=== PATIENT | male | born 1975 | race Caucasian/White ===

== ENCOUNTER 2017-05-28 14:02 | Emergency (ER) | payer OTHER ==
[2017-05-28 14:14] VITALS: TEMP 98.4; BMI 28.1
[2017-05-28] MEDS ORDERED: SODIUM CHLORIDE 0.9% 1000 ML INFUS.BAG IV ONE (14:51)
[2017-05-28] MEDS ORDERED: METOCLOPRAMIDE HCL INJECTION 10 MG/2 ML VIAL IVPUSH ONE (14:52)
[2017-05-28] MEDS ORDERED: KETOROLAC TROMETHAMINE 30 MG/1 ML VIAL IVPUSH ONE (14:52)
--- NOTE | 2017-05-28 15:08 | PDOC ---
History of Present Illness - History of Present Illness Initial Comments: 05/28/17 15:14 The patient is a 42 year old male, with no significant past medical history, who presents to the emergency department with 2 weeks of constant frontal headache, lightheadedness, and new onset of nausea 3 days ago. He states he can not sleep at night secondary to the headache. He states the headache started as diffuse across his forehead, however, states he also feels a heaviness to the back that puts pressure on my spine. He reportedly took excedrin once with relief of the headache, however, states he did not have relief when he tried the excedrin a second and third time. He reports feeling light headed and almost faint. He also reports mild nausea over the past 72 hours, however, denies vomiting. He denies LOC or syncope. He denies head trauma. He reportedly had trauma to his head at 6 years old when a flag pole fell on him. He denies chest pain, shortness of breath, and dizziness. He denies fever, chills, vomit, diarrhea and constipation. He denies dysuria, frequency, urgency and hematuria. Allergies: NKDA <Yamilet Caceres - Last Filed: 05/28/17 17:06> - General History Source: Patient, Unavil. due to pt. cond. <Elsi Campbell - Last Filed: 05/28/17 17:12> - General Chief Complaint: Headache Stated Complaint: HEADACHE FOR 2 WEEKS Time Seen by Provider: 05/28/17 14:04 Past History <Yamilet Caceres - Last Filed: 05/28/17 17:06> - Past Medical History COPD: No Other medical history: DENIES - Suicide/Smoking/Psychosocial Hx Smoking History: Never smoked Have you smoked in the past 12 months: No Information on smoking cessation initiated: No Hx Alcohol Use: No Drug/Substance Use Hx: No Substance Use Type: None <Elsi Campbell - Last Filed: 05/28/17 17:12> - Past Medical History Allergies/Adverse Reactions: Allergies Allergy/AdvReac Type Severity Reaction Status Date / Time No Known Allergies Allergy Unverified 05/28/17 14:04 Home Medications: Ambulatory Orders Fluticasone Prop 0.05% Nasal [Flonase -] 1 spray NS DAILY #1 bot 05/28/17 Ibuprofen [Motrin -] 600 mg PO TID PRN #90 tablet 05/28/17 Pseudoephedrine HCl 30 mg PO QID PRN #15 tablet 05/28/17 Review of Systems - Review of Systems Able to Perform ROS?: Yes Comments:: 05/28/17 15:14 GENERAL/CONSTITUTIONAL: No fever or chills. No weakness. HEAD, EYES, EARS, NOSE AND THROAT: No change in vision. No ear pain or discharge. No sore throat. CARDIOVASCULAR: No chest pain or shortness of breath. RESPIRATORY: No cough, wheezing, or hemoptysis. GASTROINTESTINAL: (+) nausea, No vomiting, diarrhea or constipation. GENITOURINARY: No dysuria, frequency, or change in urination. MUSCULOSKELETAL: No joint or muscle swelling or pain. No neck or back pain. SKIN: No rash NEUROLOGIC: (+) headache and lightheadedness, vertigo, loss of consciousness, or change in strength/sensation. ENDOCRINE: No increased thirst. No abnormal weight change. HEMATOLOGIC/LYMPHATIC: No anemia, easy bleeding, or history of blood clots. ALLERGIC/IMMUNOLOGIC: No hives or skin allergy. <Yamilet Caceres - Last Filed: 05/28/17 17:06> *Physical Exam - Vital Signs Last Vital Signs Temp Pulse Resp BP Pulse Ox 98.4 F 86 16 141/100 97 05/28/17 14:07 05/28/17 14:07 05/28/17 14:07 05/28/17 14:07 05/28/17 14:07 - Physical Exam Comments: 05/28/17 15:15 GENERAL: Awake, alert, and fully oriented, in no acute distress HEAD: No signs of trauma EYES: PERRLA, EOMI, sclera anicteric, conjunctiva clear ENT: (+) left nare tuberant enlargement and sinus pressure to left maxilla. Auricles normal inspection, hearing grossly normal, oropharynx clear without exudates. Moist mucosa NECK: Normal ROM, supple, no lymphadenopathy, JVD, or masses LUNGS: Breath sounds equal, clear to auscultation bilaterally. No wheezes, and no crackles HEART: Regular rate and rhythm, normal S1 and S2, no murmurs, rubs or gallops ABDOMEN: Soft, nontender, normoactive bowel sounds. No guarding, no rebound. No masses EXTREMITIES: Normal range of motion, no edema. No clubbing or cyanosis. No cords, erythema, or tenderness NEUROLOGICAL: Cranial nerves II through XII grossly intact. 5/5 MS in all extremities. Normal speech, normal gait SKIN: Warm, Dry, normal turgor, no rashes or lesions noted. <Yamilet Caceres - Last Filed: 05/28/17 17:06> - Vital Signs Last Vital Signs Temp Pulse Resp BP Pulse Ox 98.4 F 86 16 141/100 97 05/28/17 14:07 05/28/17 14:07 05/28/17 14:07 05/28/17 14:07 05/28/17 14:07 <Elsi Campbell - Last Filed: 05/28/17 17:12> ED Treatment Course - LABORATORY CBC & Chemistry Diagram: 05/28/17 15:10 05/28/17 15:10 - RADIOLOGY Radiograph Interpretation: EXAM#: TYPE/EXAM: RESULT: [id number] CT/HEAD CT WITHOUT CONTRAST Exam: CT head without contrast. Indication: Headache. Technique: Axial noncontrast head CT. Comparison: None. Findings: There is no evidence of acute intracranial hemorrhage, extra-axial collection or compelling evidence of acute, territorial transcortical infarction. MRI is much more sensitive in detecting acute infarctions. A kelli cisterna magna is noted, an anatomic variation. There is no mass effect, midline shift or hydrocephalus. The calvarium is intact. There is a chronic fracture deformity of the left medial orbital wall with mild medial herniation of the extraconal retrobulbar fat into the ethmoids. There is minimal mucosal thickening along the sphenoid sinuses and left anterior ethmoids. Impression: No acute intracranial hemorrhage, mass effect, midline shift or hydrocephalus. Reported By: Khalida Belcher DO 05/28/17 1602 <Yamilet Caceres - Last Filed: 05/28/17 17:06> - LABORATORY CBC & Chemistry Diagram: 05/28/17 15:10 05/28/17 15:10 - RADIOLOGY Radiology Studies Ordered: Category Date Time Status HEAD CT WITHOUT CONTRAST [CT] Stat CT Scan 05/28/17 14:44 Ordered <Elsi Campbell - Last Filed: 05/28/17 17:12> Medical Decision Making - Medical Decision Making 05/28/17 15:05 42-year-old male no past medical history here today complaining of headache. Patient states he has had a slow progressive headache constant for 2 frontal and now wraps around bilateral sides does have nausea for the last 3 days no vomiting also complains of feeling lightheaded denies any fevers chills no head trauma CBC did have headaches many years ago and had a childhood head trauma with significant had the age of 6. Has not had any imaging. No moderating factors. Patient has not taken any medication because he felt healthy no moderating factors no particular times a day headache is worse feels it's constant all day everyday next Physical exam is unremarkable head is atraumatic his left turbinate enlargement and sinus tenderness in the maxillary region otherwise cranial nerves are intact lung exam is clear bilaterally no wheezing no crackles heart is regular without any murmurs rubs or" abdomen is soft and nontender neuro: 5 out of 5 all 4 extremitiesnormal gait is normal female nerves are intact Differential diagnosis includes anemia, electrolyte abnormality, sinusitis causing headaches, to. Pathology, dehydration,plan labs ivf meds. ct head, decongestant for presumed sinusitis. reassess. 05/28/17 17:10 Review patient's blood tests and CT scan with him. Explained about his elevated liver enzymes & follow-up given referral to our medicine clinic doctor-and a copy of all tests were performed here today in the ED. pt demonstrates understanding will call for follow-up <Elsi Campbell - Last Filed: 05/28/17 17:12> *DC/Admit/Observation/Transfer - Attestations Scribe Attestion: 05/28/17 15:16 Documentation prepared by Yamilet Caceres, acting as medical dosimetrist for Elsi Campbell MD, <Yamilet Caceres - Last Filed: 05/28/17 17:06> - Discharge Dispostion Admit: No <Elsi Campbell - Last Filed: 05/28/17 17:12> Diagnosis at time of Disposition: Headache, Sinusitis - Discharge Dispostion Disposition: HOME Condition at time of disposition: Improved - Prescriptions Prescriptions: Fluticasone Prop 0.05% Nasal [Flonase -] 1 spray NS DAILY #1 bot Ibuprofen [Motrin -] 600 mg PO TID PRN #90 tablet PRN Reason: Pain Pseudoephedrine HCl 30 mg PO QID PRN #15 tablet PRN Reason: Headache - Referrals Referrals: Shalom Roach MD [Staff Physician] - Walter Mackenzie MD [Staff Physician] - - Patient Instructions Printed Discharge Instructions: Tension Headache, Sinusitis Additional Instructions: You can take Motrin 600 mg every 8 hours as needed for pain. Take with food he can also take Tylenol 500 mg every 6 hours as needed for pain. He should use Flonase nasal spray one squirt each nostril daily to help with sinus pressure which may be contributing to her headaches. Follow-up with Dr. June Najera, the neurologist call to schedule see referral information for phone number. Return for any problems or concerns. Your CAT scan today was normal without any acute pathology please see copy of the reported test newspapers. your liver test were mildly elevated, these should be repeated in a few months to be sure they do not continue to rise. please take copy of test to your regular doctor for follow up with within a few weeks.
[2017-05-28] MEDS ORDERED: KETOROLAC TROMETHAMINE 30 MG/1 ML VIAL ONE (15:13)
[2017-05-28 15:16] LABS: BASOPHIL 0.9 % (0-2.0); EOSINOPHIL 0.3 % (0-4.5); MCH 30.1 pg (25.7-33.7); MCHC 34.4 g/dl (32.0-35.9); MEAN CELL VOLUME 87.5 fl (80-96); MEAN PLT VOLUME 8.3 fl (7.5-11.1); PLATELET COUNT 204 K/MM3 (134-434); WHITE BLOOD COUNT 4.5 K/mm3 (4.0-10.8)
[2017-05-28 15:33] LABS: ALBUMIN 4.2 g/dl (3.5-5.0); ALK PHOS 102 U/L (32-92); ANION GAP 8 (8-16); BILIRUBIN,TOTAL 1.6 mg/dl (0.2-1.0); CALCIUM 8.5 mg/dl (8.4-10.2); CO2 22 mmol/L (22-28); GLUCOSE,RANDOM 93 mg/dl (74-106); SGOT/AST 71 U/L (10-42); SGPT/ALT 44 U/L (10-40)
[2017-05-28 16:24] VITALS: BP 135/85; PULSE 725
== END 2017-05-28 17:21 | disposition home or self-care (01) ==
LOC: FER 14:02
PROC: 3E0337Z Introduction of Electrolytic and Water Balance Substance into Peripheral Vein, Percutaneous Approach (ICD-10-PCS; principal; 2017-05-28)
DX: J01.90 Acute sinusitis, unspecified (principal); R51 Headache
CPT/HCPCS: 36415; 70450-TC; 80053; 85025; 99282-25

== ENCOUNTER 2018-01-05 19:34 | Inpatient (IN) | payer OTHER ==
--- NOTE | 2018-01-05 19:38 | PDOC ---
History of Present Illness - General History Source: Patient Exam Limitations: No Limitations - History of Present Illness Initial Comments: 01/05/18 21:54 The patient is a 42 year old male with no past medical history who presents to the emergency department for evaluation of body aches and fever. The patient reports a 2 day history of moderate pain secondary to body aches. He states he feels like someone hit me with a bat when he wakes up in the morning. The patient reports associated symptoms of decreased appetite, headache, subjective fever, chills, diaphoresis, and nausea without vomiting. He reports waking up profusely diaphoretic at 3am twice over the last two days. The patient notes that he is also drenched in sweat when he drives during the day. Pt denies any change in daily routine. The patient reports using advil in the morning with no alleviation to symptoms. Of note, the patient was admitted in May for sinusitis The patient denies recent travel, sick contact, recent mosquito bites, and outside activity. Denies sore throat, rhinorrhea, weakness, cp, abdominal pain, sob, dizziness, and bowel/urinary symptoms. Allergies: NKDA. Family History: Htn and diabetes. 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 Pt lives with his mother. No reported alcohol, cigarette, or drug use. Surgical History: Pt denies. PCP: None. <Angel Luis Zarco - Last Filed: 01/05/18 21:53> <Macie Monroe - Last Filed: 01/07/18 06:26> - General Chief Complaint: Cold Symptoms Stated Complaint: VIRAL SYNDROME Past History <Angel Luis Zarco - Last Filed: 01/05/18 21:53> - Past Medical History COPD: No - Suicide/Smoking/Psychosocial Hx Smoking History: Never smoked Have you smoked in the past 12 months: No Hx Alcohol Use: No Drug/Substance Use Hx: No Substance Use Type: None <Macie Monroe - Last Filed: 01/07/18 06:26> - Past Medical History Allergies/Adverse Reactions: Allergies Allergy/AdvReac Type Severity Reaction Status Date / Time No Known Allergies Allergy Unverified 05/28/17 14:04 Home Medications: Ambulatory Orders NK [No Known Home Medication] 01/05/18 Review of Systems - Review of Systems Able to Perform ROS?: Yes Comments:: GENERAL/CONSTITUTIONAL: (+) fever. (+)chills. No weakness. HEAD, EYES, EARS, NOSE AND THROAT: No change in vision. No ear pain or discharge. No sore throat. CARDIOVASCULAR: No chest pain or shortness of breath. RESPIRATORY: No cough, wheezing, or hemoptysis. GASTROINTESTINAL: (+)Decreased appetite. (+)Nausea. No vomiting, diarrhea or constipation. GENITOURINARY: No dysuria, frequency, or change in urination. MUSCULOSKELETAL: (+)Body aches. No joint or muscle swelling. No neck or back pain. SKIN: No rash NEUROLOGIC: (+) headache. No vertigo, loss of consciousness, or change in strength/sensation. ENDOCRINE: No increased thirst. No abnormal weight change. HEMATOLOGIC/LYMPHATIC: No anemia, easy bleeding, or history of blood clots. ALLERGIC/IMMUNOLOGIC: No hives or skin allergy. <Angel Luis Zarco - Last Filed: 01/05/18 21:53> *Physical Exam - Vital Signs Last Vital Signs Temp Pulse Resp BP Pulse Ox 101.6 F H 97 H 16 120/85 99 01/05/18 19:35 01/05/18 19:35 01/05/18 19:35 01/05/18 19:35 01/05/18 19:35 - Physical Exam Comments: GENERAL: Awake, alert, and fully oriented, in no acute distress HEAD: No signs of trauma EYES: PERRLA, EOMI, sclera anicteric, conjunctiva clear ENT: Auricles normal inspection, hearing grossly normal, nares patent, oropharynx clear without exudates. Moist mucosa NECK: Normal ROM, supple, no lymphadenopathy, JVD, or masses LUNGS: Breath sounds equal, clear to auscultation bilaterally. No wheezes, and no crackles HEART: Regular rate and rhythm, normal S1 and S2, no murmurs, rubs or gallops ABDOMEN: Soft, nontender, normoactive bowel sounds. No guarding, no rebound. No masses EXTREMITIES: Normal range of motion, no edema. No clubbing or cyanosis. No cords, erythema, or tenderness NEUROLOGICAL: Cranial nerves II through XII grossly intact. Normal speech, normal gait SKIN: (+)Burning Up. Warm, Dry, normal turgor, no rashes or lesions noted. <Angel Luis Zarco - Last Filed: 01/05/18 21:53> ED Treatment Course - LABORATORY CBC & Chemistry Diagram: 01/05/18 21:30 01/05/18 21:30 - Medications Given in the ED: ED Medications Discontinued Medications Generic Name Dose Route Start Last Admin Trade Name Anais PRYoel Reason Stop Dose Admin Acetaminophen 1,000 mg 01/05/18 20:56 01/05/18 21:00 Tylenol - PO 01/05/18 20:57 1,000 mg ONCE ONE Administration Sodium Chloride 1,000 ml 01/05/18 21:10 01/05/18 21:31 Normal Saline - IV 01/05/18 21:11 1,000 ml ONCE ONE Administration <Angel Luis Zarco - Last Filed: 01/05/18 21:53> - LABORATORY CBC & Chemistry Diagram: 01/06/18 07:47 01/06/18 07:47 <Macie Monroe - Last Filed: 01/07/18 06:26> Medical Decision Making - Medical Decision Making 01/05/18 23:48 Pt has thrombocytopenia, leukopenia, abnormal liver enzymes and drenching sweats. This could be a tick borne illness. Perhaps babesiosis. I will send off a sed rate ad a blood smear. I will also recheck his chemistries, as he was hyponatremic and hypokalemic. I will admit to medicine so that he can have an ID consult. 01/05/18 23:57 Pt has no rash of lyme, or rash of rickettsisal illness. He has no travel out of the [place] and not liekly to be malaria. He has no abd pain significantof hepatitis, though he will require a hepatitis panel. Pt will also require further serologic testing and admission. He may require lumbar puncture. 01/06/18 00:02 Pt has a normal CXR; pt will need further HIV testing. EKG is NSR. Fever controlled with tylenol. Pt received 1L NSS, IV Mag and oral potassium 01/06/18 03:22 2ND CHEM PANEL IS IMPROVED; HEADACHE IS IMPROVED ALSO. <Macie Monroe - Last Filed: 01/07/18 06:26> *DC/Admit/Observation/Transfer - Attestations Scribe Attestion: Documentation prepared by Angel Luis Zarco, acting as medical records administrator for Macie Monroe MD. <Angel Luis Zarco - Last Filed: 01/05/18 21:53> - Discharge Dispostion Decision to Admit order: Yes <Macie Monroe - Last Filed: 01/07/18 06:26> Diagnosis at time of Disposition: Fever, Leukopenia, LFTs abnormal, Unexplained night sweats, Hypokalemia, Hyponatremia - Discharge Dispostion Condition at time of disposition: Guarded
[2018-01-05] MEDS ORDERED: ACETAMINOPHEN 500 MG TABLET (FP) PO ONE (20:56)
[2018-01-05] MEDS ORDERED: ACETAMINOPHEN 500 MG TABLET (FP) ONE (20:59)
[2018-01-05] MEDS ORDERED: SODIUM CHLORIDE 0.9% 500 ML INFUS.BAG IV ONE (21:10)
[2018-01-05 21:49] LABS: HEMATOCRIT 40.6 % (35.4-49); HEMOGLOBIN 14.2 GM/dl (11.7-16.9); MCH 30.6 pg (25.7-33.7); MCHC 35.1 g/dl (32.0-35.9); MEAN CELL VOLUME 87.3 fl (80-96); MEAN PLT VOLUME 8.1 fl (7.5-11.1); PLATELET COUNT 131 K/MM3 (134-434); RBC 4.65 M/mm3 (4.00-5.60); RDW 12.2 % (11.9-15.9); WHITE BLOOD COUNT 2.4 K/mm3 (4.0-10.8)
[2018-01-05 21:58] LABS: ALBUMIN 3.9 g/dl (3.5-5.0); ALK PHOS 105 U/L (32-92); ANION GAP 6 (8-16); BLOOD UREA NITROGEN 17 mg/dl (7-18); CALCIUM 7.8 mg/dl (8.4-10.2); CHLORIDE 97 mmol/L (98-107); CO2 26 mmol/L (22-28); CREATININE 1.1 mg/dl (0.6-1.3); GLUCOSE,RANDOM 102 mg/dl (74-106); SGOT/AST 75 U/L (10-42); SGPT/ALT 56 U/L (10-40); SODIUM 129 mmol/L (136-145); TOT PROT 6.7 g/dl (6.4-8.3)
[2018-01-05 22:19] LABS: PLATELET ESTIMATE ADEQUATE
[2018-01-05] MEDS ORDERED: POTASSIUM CHLORIDE TABS 20 MEQ TABLET.ER (FP) PO ONE ×2 (22:40→22:43)
[2018-01-05] MEDS ORDERED: MAGNESIUM SULF 50% (8.12 MEQ/2 ML-1 GM VIAL) IVPB ONE (22:40)
[2018-01-05] MEDS ORDERED: MAGNESIUM 1GM/D5W - 2 GM/200 ML IVPB IVPB ONE (22:43)
[2018-01-05 22:56] LABS: PH,URINE 5.5 (4.5-8); URINE APPEARANCE Clear; URINE BILIRUBIN Negative (NEGATIVE); URINE COLOR Yellow; URINE GLUCOSE (UA) Negative (NEGATIVE); URINE KETONE Trace (NEGATIVE); URINE LEUK ESTERASE Negative (NEGATIVE); URINE NITRITE Negative (NEGATIVE); URINE UROBILINOGEN 0.2 (0.2-1.0)
[2018-01-05 22:57] LABS: URINE PROTEIN 1+ (NEGATIVE)
[2018-01-05 23:09] LABS: URINE RBC 0-2 /hpf (0-3); URINE WBC 0-1 (0-2)
[2018-01-06] MEDS ORDERED: ATOVAQUONE 750 MG/5 ML (UNIT-DOSE PACKAGING) PO ONE (00:24)
[2018-01-06] MEDS ORDERED: AZITHROMYCIN 250 MG TABLET PO ONE (00:24)
[2018-01-06] MEDS ORDERED: AZITHROMYCIN 250 MG TABLET ONE (00:32)
[2018-01-06 01:36] LABS: ANION GAP 7 (8-16); BLOOD UREA NITROGEN 14 mg/dL (7-18); CALCIUM 7.3 mg/dL (8.5-10.1); CHLORIDE 107 mmol/L (98-107); CO2 26 mmol/L (21-32); CREATININE 0.9 mg/dL (0.7-1.3); GLUCOSE,RANDOM 109 mg/dL (74-106); POTASSIUM 3.4 mmol/L (3.5-5.1); SODIUM 140 mmol/L (136-145)
[2018-01-06 02:14] VITALS: BMI 27.0
[2018-01-06 08:33] LABS: ANION GAP 7 (8-16); BLOOD UREA NITROGEN 13 mg/dl (7-18); CALCIUM 7.7 mg/dl (8.4-10.2); CHLORIDE 104 mmol/L (98-107); CO2 24 mmol/L (22-28); CREATININE 0.8 mg/dl (0.6-1.3); GLUCOSE,RANDOM 94 mg/dl (74-106); LDH 282 U/L (91-180); MAGNESIUM 2.2 mg/dL (1.8-2.4); POTASSIUM 3.7 mmol/L (3.5-5.1); SODIUM 135 mmol/L (136-145)
[2018-01-06 08:56] LABS: HEMATOCRIT 37.3 % (35.4-49); MCH 30.4 pg (25.7-33.7); MCHC 34.8 g/dl (32.0-35.9); MEAN CELL VOLUME 87.4 fl (80-96); MEAN PLT VOLUME 8.6 fl (7.5-11.1); PLATELET COUNT 109 K/MM3 (134-434); RBC 4.27 M/mm3 (4.00-5.60); WHITE BLOOD COUNT 2.8 K/mm3 (4.0-10.8)
[2018-01-06 09:00] LABS: ADD RBC MORPHOLOGY YES
--- NOTE | 2018-01-06 09:18 | HP ---
CHIEF COMPLAINT:Body aches, fever and chills. PCP:None HISTORY OF PRESENT ILLNESS: The patient is a 42 year old male with no past medical history who presents to the emergency department for evaluation of body aches, fever and chills. The patient reports of having frontal HECTOR,eye pain,body aches especially to neck and lower back,joint pain with nausea,drenched in sweat when he drives during the day since Monday.The patient also reports associated symptoms of decreased appetite, subjective fever, chills, diaphoresis,and nausea without vomiting.Denies visual changes,double vision,sore throat,watery eyes,redness, rhinorrhea,rash, abdominal pain,diarrhea, cp, sob, palpitations,dizziness, weakness, urinary symptoms or weight loss. Denies any sick contact or recent travel history. 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 Pt reports of taking Advil for pain with no relief. 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 Smoking:No Alcohol:No Drugs: No *Family History: Mother: HTN, CHO, CVA Father - 10 yrs ado, unknown cause *Allergies No Known Allergies Allergy (Unverified 05/28/17 14:04) HOME MEDICATIONS: Home Medications Medication Instructions Recorded NK [No Known Home Medication] 01/05/18 REVIEW OF SYSTEMS CONSTITUTIONAL: Reports fever, chills, diaphoresis, generalized weakness, malaise, loss of appetite, No weight change HEENT: positive eye pain Absent: rhinorrhea, nasal congestion, throat pain, throat swelling, difficulty swallowing, mouth swelling, ear pain, visual changes CARDIOVASCULAR: Absent: chest pain, syncope, palpitations, irregular heart rate, lightheadedness , peripheral edema RESPIRATORY: Absent: cough, shortness of breath, dyspnea with exertion, orthopnea, wheezing, stridor, hemoptysis GASTROINTESTINAL: Absent: abdominal pain, abdominal distension, nausea, vomiting, diarrhea, constipation, melena, hematochezia GENITOURINARY: Absent: dysuria, frequency, urgency, hesitancy, hematuria, flank pain, genital pain MUSCULOSKELETAL: Absent: myalgia, arthralgia, joint swelling, back pain, neck pain,+ joint pain SKIN: Absent: rash, itching, pallor HEMATOLOGIC/IMMUNOLOGIC: Absent: easy bleeding, easy bruising, lymphadenopathy, frequent infections ENDOCRINE: Absent: unexplained weight gain, unexplained weight loss, heat intolerance, cold intolerance NEUROLOGIC: Absent: headache, focal weakness or paresthesias, dizziness, unsteady gait, seizure, mental status changes, bladder or bowel incontinence PSYCHIATRIC: Absent: anxiety, depression, suicidal or homicidal ideation, hallucinations. PHYSICAL EXAMINATION Vital Signs - 24 hr 01/05/18 01/05/18 01/06/18 19:35 22:50 00:21 Temperature 101.6 F H 98.7 F 98.9 F Pulse Rate 97 H Pulse Rate [ 80 Radial] Respiratory 16 18 Rate Blood Pressure 120/85 Blood Pressure 118/78 [Arm] O2 Sat by Pulse 99 100 Oximetry (%) 01/06/18 01/06/18 01/06/18 01:18 02:38 07:41 Temperature 98.9 F 98.8 F 99.2 F Pulse Rate 84 72 81 Pulse Rate [ Radial] Respiratory 18 20 18 Rate Blood Pressure 107/72 111/70 Blood Pressure [Arm] O2 Sat by Pulse 97 98 Oximetry (%) GENERAL: Awake, alert, and fully oriented, in no acute distress. HEAD: Normal with no signs of trauma. EYES: Pupils equal, round and reactive to light, extraocular movements intact, sclera anicteric, conjunctiva clear. No lid lag. EARS, NOSE, THROAT: Ears normal, nares patent, oropharynx clear without exudates. Moist mucous membranes. NECK: Normal range of motion, supple without lymphadenopathy, JVD, or masses. LUNGS: Breath sounds equal, clear to auscultation bilaterally. No wheezes, and no crackles. No accessory muscle use. HEART: Regular rate and rhythm, normal S1 and S2 without murmur, rub or gallop. ABDOMEN: Soft, nontender, not distended, normoactive bowel sounds, no guarding, no rebound, no masses. No hepatomegaly or splenomegaly. MUSCULOSKELETAL: Normal range of motion at all joints. No bony deformities or tenderness. No CVA tenderness. UPPER EXTREMITIES: 2+ pulses, warm, well-perfused. No cyanosis. No clubbing. No peripheral edema. LOWER EXTREMITIES: 2+ pulses, warm, well-perfused. No calf tenderness. No peripheral edema. NEUROLOGICAL: Cranial nerves II-XII intact. Normal speech. Normal gait. PSYCHIATRIC: Cooperative. Good eye contact. Appropriate mood and affect. SKIN: Warm, dry, normal turgor, no rashes or lesions noted, normal capillary refill. Laboratory Results - last 24 hr 01/05/18 01/05/18 01/05/18 21:30 21:30 21:30 WBC 2.4 L RBC 4.65 Hgb 14.2 Hct 40.6 MCV 87.3 MCH 30.6 MCHC 35.1 RDW 12.2 Plt Count 131 L D MPV 8.1 Absolute Neuts (auto) 1.5 Neutrophils % No Result Required. Neutrophils % (Manual) 57.0 Band Neutrophils % 4.0 Lymphocytes % No Result Required. Lymphocytes % (Manual) 25.0 Monocytes % (Manual) 7 Eosinophils % (Manual) 4.0 Platelet Estimate Adequate ESR Sodium 129 L Potassium 3.0 L D Chloride 97 L Carbon Dioxide 26 Anion Gap 6 L BUN 17 Creatinine 1.1 Creat Clearance w eGFR > 60 Random Glucose 102 Lactic Acid 0.7 Calcium 7.8 L Magnesium Total Bilirubin 1.0 AST 75 H ALT 56 H D Alkaline Phosphatase 105 H LD Total Total Protein 6.7 Albumin 3.9 Urine Color Urine Appearance Urine pH Ur Specific [place] Urine Protein Urine Glucose (UA) Urine Ketones Urine Blood Urine Nitrite Urine Bilirubin Urine Urobilinogen Ur Leukocyte Esterase Urine RBC Urine WBC Microbiology 01/05/18 21:20 Influenza Types A,B Antigen - Final Nasopharyngeal Swab - Final *Blood culture pending ASSESSMENT/PLAN: The patient is a 42 year old male with no past medical history who presents to the emergency department for evaluation of body aches, fever and chills. *Body aches, fever and chills -leukopenia- likely viral induced - max T 101.6, afebrile now, no leukocytosis - s/p Zithromax and Mepron in ER - serology studies pending - UA negative -BC done, report pending - ID Dr. Sahu consulted,rec to add Doxy - CxR- NAD - Influenza ruled out - pain control *Transaminitis-asymptomatic - hx of abnormal LFTs - will get liver US - will f/u on LFT's * Electrolyte imbalance - s/p replacement - will f/u on labs * F/E/N: Regular diet. * VTE: Will use SCDs in view of low PLT Visit type - Emergency Visit Emergency Visit: Yes ED Registration Date: 01/06/18 Care time: The patient presented to the Emergency Department on the above date and was hospitalized for further evaluation of their emergent condition. - New Patient This patient is new to me today: Yes Date on this admission: 01/13/18 - Critical Care Critical Care patient: No Hospitalist Screening - Colonoscopy Questionnaire Colonoscopy Questionnaire: Colonoscopy Questionnaire - Patient: 50 - 75 years old and never had a screening colonoscopy: No History of colon or rectal polyps, or CA: No History of IBD, Crohn's disease or UC: No History of abdominal radiation therapy as a child: No - Relative: 1 with colon or rectal CA, or polyps at age 60 or younger: Unknown Colon or rectal CA diagnosed at age 45 or younger: Unknown Multiple relatives with colon or rectal CA: Unknown - Outcome: Screening Result: Negative Screen
[2018-01-06 10:00] LABS: PLATELET ESTIMATE ADEQUATE
[2018-01-06] MEDS ORDERED: DOXYCYCLINE HYCLATE 100 MG CAPSULE PO SCH (10:00)
[2018-01-06] MEDS: CEFTRIAXONE 1 GM in DEXTROSE 5%-WATER - 50 ML IVPB SCH (10:24)
[2018-01-06] MEDS ORDERED: SODIUM CHLORIDE 1,000 ML IV SCH (14:00)
--- NOTE | 2018-01-06 16:28 | PN ---
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
[2018-01-06] MEDS: DOXYCYCLINE INJECTION 100 MG in DEXTROSE 5%-WATER - 100 ML IVPB SCH (21:33)
[2018-01-06] MEDS: IBUPROFEN 400 MG TABLET (FP) PO PRN (21:33)
[2018-01-07] MEDS: IBUPROFEN 400 MG TABLET (FP) PO PRN (04:42)
--- NOTE | 2018-01-07 08:15 | CONS ---
DATE OF CONSULTATION: 01/06/2018 This is an otherwise healthy 42-year-old man; he takes no medications, he has no allergies; who presents to the emergency room with complaints of sweats, chills, headache, neck pain, back pain, and a mild cough that all started on Monday. It has persisted since that time and he comes today with persistent fevers and chills. The chest x-ray done in the emergency room, though, is unremarkable. I am asked to see him for his fever. He is currently resting comfortably without any complaints. He has no known drug allergies. He takes no medications. 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 There is no history of any tick or insect bites. There is no history of any travel. He has no sick contacts. He is not sexually active. He denies any cigarette or substance use. SOCIAL HISTORY: He lives with his mother, who has dementia, and his daughter, who he is raising. 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 He lives in [place]. REVIEW OF SYSTEMS: He has no diarrhea or dysuria. He has no vomiting. He does note chills and sweats. He has not been to the dentist. He does not have any dental pain. He has overall body discomfort. He has pet parakeets at home, who he said that are well. PHYSICAL EXAMINATION: Vital Signs: His current temperature is 102.8 with a pulse of 92, blood pressure is 118/66, respiratory rate is 18. He is saturating 95% on room air. HEENT: He is normocephalic. His eyes are anicteric. He has no conjunctival hemorrhages. He has no thrush or pharyngitis. Neck: Supple. Lungs: Clear to auscultation. Heart: Regular rate and rhythm. He does not have a murmur. Abdomen: Soft, nontender. Extremities: Without edema. LABORATORIES: Notable for a white count of 2.8, hemoglobin is 13, platelets are 109. His sedimentation rate is 9. His BUN and creatinine are normal with BUN 0.8, creatinine and 0.6. LFTs on admission: AST of 75, ALT of 56, alkaline phosphatase of 105 with a normal bilirubin. Urinalysis is negative. He had a parasites mirror done that is negative and urine and blood cultures are pending. Influenza screen was done, which is negative. Chest x-ray was done, which is negative. SUMMARY: This is a 42-year-old man with leukopenia, thrombocytopenia, abnormal liver function tests. Although he denies any tick or mosquito bites, this is very consistent with a tick illness or a viral illness. Serologies have been sent for Babesia, Ehrlichia, Anaplasma, and Lyme as well as CMV and EBV. Would follow up serologies, treat him with Rocephin and doxycycline for now. No need for empiric treatment for Babesia, as there is no evidence of hemolysis and his mirror is negative. He has consented to HIV testing, which we will obtain as well. Further recommendations to follow based on his clinical course. Teresita [id number]
[2018-01-07] MEDS ORDERED: PT OWN MED DRAWER 7, Y5N ONE ×2 (09:09→21:11)
[2018-01-07 09:26] LABS: ALBUMIN 3.1 g/dl (3.5-5.0); ALK PHOS 151 U/L (32-92); ANION GAP 8 (8-16); BILIRUBIN,DIRECT 0.3 mg/dL (0.0-0.3); BLOOD UREA NITROGEN 10 mg/dl (7-18); CALCIUM 7.7 mg/dl (8.4-10.2); CHLORIDE 99 mmol/L (98-107); CO2 27 mmol/L (22-28); CREATININE 0.8 mg/dl (0.6-1.3); GLUCOSE,RANDOM 98 mg/dl (74-106); MAGNESIUM 1.9 mg/dL (1.8-2.4); PHOSPHOROUS 2.3 mg/dl (2.5-4.6); SGOT/AST 94 U/L (10-42); SGPT/ALT 103 U/L (10-40); SODIUM 134 mmol/L (136-145); TOT PROT 5.6 g/dl (6.4-8.3)
[2018-01-07 09:41] LABS: BASO % 0.1 % (0-2.0); EOS % 4.7 % (0-4.5); HEMATOCRIT 38.5 % (35.4-49); HEMOGLOBIN 13.3 GM/dl (11.7-16.9); LYMPH % 11.2 % (8-40); MCH 30.1 pg (25.7-33.7); MCHC 34.6 g/dl (32.0-35.9); MEAN PLT VOLUME 9.5 fl (7.5-11.1); MONO % 6.7 % (3.8-10.2); NEUT % 77.3 % (42.8-82.8); PLATELET COUNT 118 K/MM3 (134-434); RBC 4.43 M/mm3 (4.00-5.60); RDW 12.3 % (11.9-15.9); WHITE BLOOD COUNT 4.4 K/mm3 (4.0-10.8)
[2018-01-07] MEDS: DOXYCYCLINE INJECTION 100 MG in DEXTROSE 5%-WATER - 100 ML IVPB SCH ×2 (10:08→21:32)
[2018-01-07] MEDS: CEFTRIAXONE 1 GM in DEXTROSE 5%-WATER - 50 ML IVPB SCH (10:08)
--- NOTE | 2018-01-07 13:30 | PN ---
Physical Exam: SUBJECTIVE: Patient seen and examined. Headache, bodyaches, feverish. Rectal temp 102.3. OBJECTIVE: Vital Signs Period Temp Pulse Resp BP Sys/Vora Pulse Ox Last 24 Hr 98.9 F-102.8 F 72-92 18-19 103-118/59-66 95-100 GENERAL: The patient is awake, alert, and fully oriented, in no acute distress. LUNGS: Breath sounds equal, clear to auscultation bilaterally, no wheezes, no crackles, no accessory muscle use. HEART: Regular rate and rhythm, S1, S2 without murmur, rub or gallop. ABDOMEN: Soft, nontender, nondistended EXTREMITIES: 2+ pulses, warm, well-perfused, no edema. NEUROLOGICAL: Cranial nerves II through XII grossly intact. Normal speech SKIN: Very warm to touch, dry, no rashes noted Laboratory Results - last 24 hr 01/06/18 01/07/18 01/07/18 07:47 06:00 06:00 WBC 4.4 RBC 4.43 Hgb 13.3 Hct 38.5 MCV 87.0 MCH 30.1 MCHC 34.6 RDW 12.3 Plt Count 118 L MPV 9.5 D Absolute Neuts (auto) 3.4 Neutrophils % 77.3 Lymphocytes % 11.2 D Monocytes % 6.7 Eosinophils % 4.7 H D Basophils % 0.1 Sodium 134 L Potassium 4.0 Chloride 99 Carbon Dioxide 27 Anion Gap 8 BUN 10 Creatinine 0.8 Creat Clearance w eGFR > 60 Random Glucose 98 Calcium 7.7 L Phosphorus 2.3 L Magnesium 1.9 Total Bilirubin 1.0 Direct Bilirubin 0.3 AST 94 H D ALT 103 H D Alkaline Phosphatase 151 H D Total Protein 5.6 L Albumin 3.1 L Hep B Core IgM Ab Negative HIV 1&2 Antibody Screen HIV P24 Antigen 01/07/18 06:00 WBC RBC Hgb Hct MCV MCH MCHC RDW Plt Count MPV Absolute Neuts (auto) Neutrophils % Lymphocytes % Monocytes % Eosinophils % Basophils % Sodium Potassium Chloride Carbon Dioxide Anion Gap BUN Creatinine Creat Clearance w eGFR Random Glucose Calcium Phosphorus Magnesium Total Bilirubin Direct Bilirubin AST ALT Alkaline Phosphatase Total Protein Albumin Hep B Core IgM Ab HIV 1&2 Antibody Screen Negative HIV P24 Antigen Negative Active Medications Generic Name Dose Route Start Last Admin Trade Name Freq PRN Reason Stop Dose Admin Ceftriaxone Sodium 1 gm/ 50 mls @ 100 mls/hr 01/06/18 10:00 01/07/18 10:08 Dextrose IVPB 100 mls/hr DAILY OMKAR Administration Protocol Sodium Chloride 1,000 mls @ 75 mls/hr 01/06/18 14:00 01/06/18 14:00 Normal Saline - IV 75 mls/hr ASDIR OMKAR Administration Doxycycline Hyclate 100 mg/ 100 mls @ 50 mls/hr 01/06/18 22:00 01/07/18 10:08 Dextrose IVPB 50 mls/hr BID OMKAR Administration Ibuprofen 400 mg 01/06/18 13:56 01/07/18 04:42 Motrin - PO 400 mg Q6H PRN Administration FEVER ASSESSMENT/PLAN: 42 year-old male with no significant PMH, presents to the emergency department for evaluation of body aches, fever and chills. Body aches, fever and chills --spiking fevers >102 with leukopenia and thrombocytopenia; viral v. tickborne?? --fluid bolus 2L --continue ceftriaxone (day #2)and doxycycline (day #2) --Motrin for fever, avoid tylenol due to elevated LFTs --re-cultured today; tickborne illness panel pending; HIV negative Transaminitis --US done, pending dictation --serologies pending FEN Fluids: NS @ 75mL/hr Electrolytes: replete as indicated Nutrition: regular diet DVT prophylaxis: SCDs, oob, ambulation Dispo: continues to require inpatient care. Full Code. Visit type - Emergency Visit Emergency Visit: Yes ED Registration Date: 01/06/18 Care time: The patient presented to the Emergency Department on the above date and was hospitalized for further evaluation of their emergent condition. - New Patient This patient is new to me today: Yes Date on this admission: 01/07/18 - Critical Care Critical Care patient: No
[2018-01-07] MEDS ORDERED: SODIUM CHLORIDE 1,000 ML IV STA ×2 (13:42→13:44)
[2018-01-07] MEDS ORDERED: SODIUM CHLORIDE 1,000 ML IV SCH ×2 (13:43→13:45)
[2018-01-07] MEDS ORDERED: IBUPROFEN 800 MG/8 ML IJ IVPB ONE (14:15)
--- NOTE | 2018-01-07 15:39 | PN ---
Progress Note (short form) - Note Progress Note: day #1 doxycycline/rocephin still with intermittent fever and chills currently feeling well no appetite alert conversant Vital Signs Period Temp Pulse Resp BP Sys/Vora Pulse Ox Last 24 Hr 98.9 F-101.8 F 72-87 18-19 103-118/59-66 95-100 cor-rrr lungs clear abd soft,nt ext no edema no rash CBC, BMP 01/07/18 06:00 01/07/18 06:00 Laboratory Tests 01/06/18 00:14 ESR 9 Microbiology 01/05/18 22:51 Urine - Urine Clean Catch Urine Culture - Final NO GROWTH OBTAINED 01/05/18 21:30 Blood - Peripheral Venous Blood Culture - Preliminary NO GROWTH OBTAINED AFTER 24 HOURS, INCUBATION TO CONTINUE FOR 4 DAYS. 01/05/18 21:30 Blood - Peripheral Venous Blood Culture - Preliminary NO GROWTH OBTAINED AFTER 24 HOURS, INCUBATION TO CONTINUE FOR 4 DAYS. 01/06/18 00:14 Blood - Peripheral Venous Blood Parasites Smear - Final No growth. 01/05/18 21:20 Nasopharyngeal Swab Influenza Types A,B Antigen - Final 01/05/18 21:20 Nasopharyngeal Swab - Final hiv negative a/p fevers-persistent no tick/mosquito bites no dental visits no rash ?tick illness ?viral illness serologies sent rocephin/doxy day #1 f/u cultures f/u liver sonogram results will d/w DENTAL ASSISTANT check hepatitis serology wbc/platelets starting to improve Problem List - Problems (1) FUO (fever of unknown origin) Code(s): R50.9 - FEVER, UNSPECIFIED
[2018-01-07] MEDS ORDERED: REFRIGERATED ANITBIOTICS ONE (21:12)
[2018-01-08] MEDS: IBUPROFEN 400 MG TABLET (FP) PO PRN ×3 (06:21→20:59)
--- NOTE | 2018-01-08 08:06 | PN ---
Physical Exam: SUBJECTIVE: Patient seen and examined, patient reports feeling tired with tactile fever OBJECTIVE: patient is a 42 year-old male with no significant PMH, patient was admitted from the emergency department for fever of unknown origin and transaminitis. Vital Signs Period Temp Pulse Resp BP Sys/Vora Pulse Ox Last 24 Hr 98.4 F-102.3 F 80-88 18-20 105-133/61-68 95 GENERAL: The patient is awake, alert, and fully oriented, in no acute distress. HEAD: Normal with no signs of trauma. EYES: PERRL, extraocular movements intact, sclera anicteric, conjunctiva clear. No ptosis. ENT: Ears normal, nares patent, oropharynx clear without exudates, moist mucous membranes. NECK: Trachea midline, full range of motion, supple. LUNGS: Breath sounds equal, clear to auscultation bilaterally, no wheezes, no crackles, no accessory muscle use. HEART: Regular rate and rhythm, S1, S2 without murmur, rub or gallop. ABDOMEN: Soft, nontender, nondistended, normoactive bowel sounds, no guarding, no rebound, no hepatosplenomegaly, no masses. EXTREMITIES: 2+ pulses, warm, well-perfused, no edema. NEUROLOGICAL: Cranial nerves II through XII grossly intact. Normal speech, gait not observed. PSYCH: Normal mood, normal affect. SKIN: Warm, dry, normal turgor, no rashes or lesions noted Laboratory Results - last 24 hr CBC WBC 5.3 K/mm3 (4.0-10.8) 01/08/18 07:10 RBC 3.94 M/mm3 (4.00-5.60) L 01/08/18 07:10 Hgb 11.5 GM/dl (11.7-16.9) L 01/08/18 07:10 Hct 34.0 % (35.4-49) L 01/08/18 07:10 MCV 86.5 fl (80-96) 01/08/18 07:10 MCH 29.3 pg (25.7-33.7) 01/08/18 07:10 MCHC 33.9 g/dl (32.0-35.9) 01/08/18 07:10 RDW 12.2 % (11.9-15.9) 01/08/18 07:10 Plt Count 137 K/MM3 (134-434) 01/08/18 07:10 MPV 9.1 fl (7.5-11.1) 01/08/18 07:10 Absolute Neuts (auto) 4.3 # 01/08/18 07:10 Neutrophils % 81.9 % (42.8-82.8) 01/08/18 07:10 Neutrophils % (Manual) 72.0 % (42.8-82.8) 01/06/18 07:47 Band Neutrophils % 4.0 % (0-10) 01/05/18 21:30 Lymphocytes % 9.3 % (8-40) 01/08/18 07:10 Lymphocytes % (Manual) 14.0 % (8-40) D 01/06/18 07:47 Monocytes % 5.4 % (3.8-10.2) 01/08/18 07:10 Monocytes % (Manual) 12 % (3.8-10.2) H 01/06/18 07:47 Eosinophils % 3.4 % (0-4.5) 01/08/18 07:10 Eosinophils % (Manual) 2.0 % (0-4.5) 01/06/18 07:47 Basophils % 0.0 % (0-2.0) 01/08/18 07:10 Platelet Estimate Adequate 01/06/18 07:47 ESR 9 mm/hr (0-10) 01/06/18 00:14 CMP Sodium 131 mmol/L (136-145) L 01/08/18 07:10 Potassium 3.3 mmol/L (3.5-5.1) L 01/08/18 07:10 Chloride 104 mmol/L (98-107) 01/08/18 07:10 Carbon Dioxide 23 mmol/L (22-28) 01/08/18 07:10 Anion Gap 4 (8-16) L 01/08/18 07:10 BUN 8 mg/dl (7-18) 01/08/18 07:10 Creatinine 0.8 mg/dl (0.6-1.3) 01/08/18 07:10 Creat Clearance w eGFR > 60 (>60) 01/08/18 07:10 Random Glucose 101 mg/dl (74-106) 01/08/18 07:10 Lactic Acid 0.7 mmol/L (0.0-2.0) 01/05/18 21:30 Calcium 7.3 mg/dl (8.4-10.2) L 01/08/18 07:10 Phosphorus 2.3 mg/dl (2.5-4.6) L 01/07/18 06:00 Magnesium 1.6 mg/dL (1.8-2.4) L 01/08/18 07:10 Total Bilirubin 0.9 mg/dl (0.2-1.0) 01/08/18 07:10 Direct Bilirubin 0.3 mg/dL (0.0-0.3) 01/08/18 07:10 AST 80 U/L (10-42) H 01/08/18 07:10 ALT 130 U/L (10-40) H D 01/08/18 07:10 Alkaline Phosphatase 210 U/L (32-92) H D 01/08/18 07:10 LD Total 282 U/L (91-180) H 01/06/18 07:47 Total Protein 4.9 g/dl (6.4-8.3) L 01/08/18 07:10 Albumin 2.7 g/dl (3.5-5.0) L 01/08/18 07:10 Laboratory Tests 01/07/18 06:00 HIV 1&2 Antibody Screen Negative HIV P24 Antigen Negative Active Medications Generic Name Dose Route Start Last Admin Trade Name Anais PRN Reason Stop Dose Admin Ceftriaxone Sodium 1 gm/ 50 mls @ 100 mls/hr 01/06/18 10:00 01/07/18 10:08 Dextrose IVPB 100 mls/hr DAILY OMKAR Administration Protocol Doxycycline Hyclate 100 mg/ 100 mls @ 50 mls/hr 01/06/18 22:00 01/07/18 21:32 Dextrose IVPB 50 mls/hr BID OMKAR Administration Sodium Chloride 1,000 mls @ 100 mls/hr 01/07/18 13:45 01/07/18 15:00 Normal Saline - IV 100 mls/hr ASDIR OMKAR Administration Ibuprofen 400 mg 01/06/18 13:56 01/08/18 06:21 Motrin - PO 400 mg Q6H PRN Administration FEVER Microbiology 01/06/18 00:14 Blood - Peripheral Venous Blood Parasites Smear - Final, negative 01/05/18 21:30 Blood - Peripheral Venous Blood Culture - Preliminary NO GROWTH OBTAINED AFTER 48 HOURS, INCUBATION TO CONTINUE FOR 3 DAYS. 01/05/18 21:30 Blood - Peripheral Venous Blood Culture - Preliminary NO GROWTH OBTAINED AFTER 48 HOURS, INCUBATION TO CONTINUE FOR 3 DAYS. 01/05/18 22:51 Urine - Urine Clean Catch Urine Culture - Final NO GROWTH OBTAINED 01/05/18 21:20 Nasopharyngeal Swab Influenza Types A,B Antigen - Final, negative 01/05/18 21:20 Nasopharyngeal Swab - Final, negative imaging liver ultrasound: Diffuse hepatic steatosis, no hepatic abscess, chronic cholecytitis chest xray: no infilitrate no effusion noted ASSESSMENT/PLAN: 1) heme/onc fever of unknown origin-->tick vs viral - tmax 101.5, no leukocytosis noted, blood cultures negative to date - blood smear negative for parasites - pending lymes and cmv - continue ceftriaxone (day #3)and doxycycline (day #3) - ID physician, Dr Haddad consulted and following 2) GI Transaminitis - Ultrasound report reviewed,hepatitis B- awaiting complete hepatic serologies benign abdominal exam FEN regular diet Electrolytes: replete as indicated Nutrition: regular diet DVT prophylaxis: SCDs, oob, ambulation Dispo: continues to require inpatient care. Full Code. Visit type - Emergency Visit Emergency Visit: Yes ED Registration Date: 01/06/18 Care time: The patient presented to the Emergency Department on the above date and was hospitalized for further evaluation of their emergent condition. - New Patient This patient is new to me today: Yes Date on this admission: 01/08/18 - Critical Care Critical Care patient: No - Discharge Referral Referred to [facility] Med P.C.: No
[2018-01-08 08:09] LABS: EOS % 3.4 % (0-4.5); HEMOGLOBIN 11.5 GM/dl (11.7-16.9); LYMPH % 9.3 % (8-40); MCH 29.3 pg (25.7-33.7); MCHC 33.9 g/dl (32.0-35.9); MEAN CELL VOLUME 86.5 fl (80-96); MEAN PLT VOLUME 9.1 fl (7.5-11.1); MONO % 5.4 % (3.8-10.2); NEUT % 81.9 % (42.8-82.8); PLATELET COUNT 137 K/MM3 (134-434); RBC 3.94 M/mm3 (4.00-5.60); RDW 12.2 % (11.9-15.9); WHITE BLOOD COUNT 5.3 K/mm3 (4.0-10.8)
[2018-01-08 08:38] LABS: ALBUMIN 2.7 g/dl (3.5-5.0); ALK PHOS 210 U/L (32-92); ANION GAP 4 (8-16); BILIRUBIN,DIRECT 0.3 mg/dL (0.0-0.3); BILIRUBIN,TOTAL 0.9 mg/dl (0.2-1.0); BLOOD UREA NITROGEN 8 mg/dl (7-18); CALCIUM 7.3 mg/dl (8.4-10.2); CHLORIDE 104 mmol/L (98-107); CO2 23 mmol/L (22-28); CREATININE 0.8 mg/dl (0.6-1.3); GLUCOSE,RANDOM 101 mg/dl (74-106); MAGNESIUM 1.6 mg/dL (1.8-2.4); POTASSIUM 3.3 mmol/L (3.5-5.1); SGOT/AST 80 U/L (10-42); SGPT/ALT 130 U/L (10-40); SODIUM 131 mmol/L (136-145); TOT PROT 4.9 g/dl (6.4-8.3)
[2018-01-08] MEDS ORDERED: MAGNESIUM SULFATE IN WATER 2 GM/50 ML IVPB IVPB ONE (09:30)
[2018-01-08 09:35] LABS: ALBUMIN 3.4 g/dl (3.5-5.0); ALK PHOS 103 U/L (32-92); BILIRUBIN,DIRECT 0.2 mg/dL (0.0-0.3); BILIRUBIN,TOTAL 0.9 mg/dl (0.2-1.0); SGOT/AST 74 U/L (10-42); SGPT/ALT 57 U/L (10-40); TOT PROT 5.7 g/dl (6.4-8.3)
[2018-01-08] MEDS: DOXYCYCLINE INJECTION 100 MG in DEXTROSE 5%-WATER - 100 ML IVPB SCH ×2 (09:44→21:34)
[2018-01-08] MEDS: CEFTRIAXONE 1 GM in DEXTROSE 5%-WATER - 50 ML IVPB SCH (09:45)
--- NOTE | 2018-01-08 09:59 | PN ---
Progress Note, Physician History of Present Illness: Remains febrile 101.2 this am C/O mild frontal headache WBC improved Tick serology pending LFTs remain elevated HIV test negative - Current Medication List Current Medications: Active Medications Ceftriaxone Sodium 1 gm/ (Dextrose) 50 mls @ 100 mls/hr IVPB DAILY OMKAR; Protocol Last Admin: 01/08/18 09:45 Dose: 100 mls/hr Doxycycline Hyclate 100 mg/ (Dextrose) 100 mls @ 50 mls/hr IVPB BID OMKAR Last Admin: 01/08/18 09:44 Dose: 50 mls/hr Magnesium Sulfate (Magnesium Sulf 2 G/50 Ml Bag) 2 gm in 50 mls @ 50 mls/hr IVPB ONCE ONE Stop: 01/08/18 10:29 Last Admin: 01/08/18 09:44 Dose: 50 mls/hr Ibuprofen (Motrin -) 400 mg PO Q6H PRN PRN Reason: FEVER Last Admin: 01/08/18 09:45 Dose: 400 mg - Objective Vital Signs: Vital Signs Temperature 101.2 F H 01/08/18 06:00 Pulse Rate 80 01/08/18 06:00 Respiratory Rate 18 01/08/18 06:00 Blood Pressure 133/68 01/08/18 06:00 O2 Sat by Pulse Oximetry (%) 95 01/07/18 19:40 Constitutional: Yes: No Distress Eyes: Yes: Conjunctiva Clear Cardiovascular: Yes: Regular Rate and Rhythm, S1, S2 Respiratory: No: CTA Bilaterally Gastrointestinal: Yes: Normal Bowel Sounds, Soft. No: Tenderness Edema: No Labs: CBC, BMP 01/08/18 07:10 01/08/18 07:10 Assessment/Plan Fever,headache, leukopenia/ thrombocytopenia, elevated LFTs Tick-related vs. viral illness Await serologies Continue empiric ceftriaxone/ doxycycline
--- NOTE | 2018-01-08 10:50 | EKG ---
Test Reason : Blood Pressure : / mmHG Vent. Rate : 078 BPM Atrial Rate : 078 BPM P-R Int : 172 ms QRS Dur : 086 ms QT Int : 376 ms P-R-T Axes : 061 074 028 degrees QTc Int : 428 ms NORMAL SINUS RHYTHM NORMAL ECG WHEN COMPARED WITH ECG OF 08-APR-2002 23:30, NO SIGNIFICANT CHANGE WAS FOUND Confirmed by CLEMENCIA JARRELL MD ([id number]) on 01/08/2018 10:50:41 AM Referred By: MD PARIS Confirmed By:CLEMENCIA JARRELL MD
[2018-01-08] MEDS ORDERED: PT OWN MED DRAWER 7, Y5N ONE (21:14)
[2018-01-09 00:11] LABS: CMV IgM < 30.0 AU/mL (0.0-29.9)
[2018-01-09] MEDS: IBUPROFEN 400 MG TABLET (FP) PO PRN ×2 (06:46→14:02)
[2018-01-09 08:28] LABS: BASO % 0.1 % (0-2.0); EOS % 6.7 % (0-4.5); HEMATOCRIT 36.5 % (35.4-49); HEMOGLOBIN 12.3 GM/dl (11.7-16.9); MCH 29.2 pg (25.7-33.7); MCHC 33.7 g/dl (32.0-35.9); MEAN CELL VOLUME 86.7 fl (80-96); MEAN PLT VOLUME 7.9 fl (7.5-11.1); MONO % 4.8 % (3.8-10.2); NEUT % 75.4 % (42.8-82.8); PLATELET COUNT 214 K/MM3 (134-434); RBC 4.21 M/mm3 (4.00-5.60); RDW 12.3 % (11.9-15.9); WHITE BLOOD COUNT 6.7 K/mm3 (4.0-10.8)
--- NOTE | 2018-01-09 08:42 | PN ---
Physical Exam: SUBJECTIVE: Patient seen and examined, reports headache and dry cough denies any chest pain or shortness of breath ambulatory at bedside, steady gait noted OBJECTIVE:patient is a 42 year-old male with no significant PMH, patient was admitted from the emergency department for fever of unknown origin and transaminitis. Vital Signs Period Temp Pulse Resp BP Sys/Vora Pulse Ox Last 24 Hr 98.5 F-99.0 F 74-83 18-18 102-114/57-69 97-99 GENERAL: The patient is awake, alert, and fully oriented, in no acute distress. HEAD: Normal with no signs of trauma. EYES: PERRL, extraocular movements intact, sclera anicteric, conjunctiva clear. No ptosis. ENT: Ears normal, nares patent, oropharynx clear without exudates, moist mucous membranes. NECK: Trachea midline, full range of motion, supple. LUNGS: Breath sounds equal, clear to auscultation bilaterally, no wheezes, no crackles, no accessory muscle use. HEART: Regular rate and rhythm, S1, S2 without murmur, rub or gallop. ABDOMEN: Soft, nontender, nondistended, normoactive bowel sounds, no guarding, no rebound, no hepatosplenomegaly, no masses. EXTREMITIES: 2+ pulses, warm, well-perfused, no edema. NEUROLOGICAL: Cranial nerves II through XII grossly intact. Normal speech, gait not observed. PSYCH: Normal mood, normal affect. SKIN: Warm, dry, normal turgor, no rashes or lesions noted Laboratory Results - last 24 hr 01/06/18 01/06/18 01/06/18 07:47 07:47 07:47 WBC RBC Hgb Hct MCV MCH MCHC RDW Plt Count MPV Absolute Neuts (auto) Neutrophils % Lymphocytes % Monocytes % Eosinophils % Basophils % Haptoglobin Sodium Potassium Chloride Carbon Dioxide Anion Gap BUN Creatinine Creat Clearance w eGFR Random Glucose Calcium Phosphorus Magnesium Total Bilirubin 0.9 Direct Bilirubin 0.2 AST 74 H ALT 57 H Alkaline Phosphatase 103 H Total Protein 5.7 L Albumin 3.4 L Lyme Screen IgG & IgM <0.91 Lyme IgM Quantitation <0.80 CMV IgG Ab 1.80 H CMV IgM Ab < 30.0 01/07/18 01/07/18 01/09/18 06:00 06:00 08:15 WBC 6.7 RBC 4.21 Hgb 12.3 Hct 36.5 MCV 86.7 MCH 29.2 MCHC 33.7 RDW 12.3 Plt Count 214 D MPV 7.9 D Absolute Neuts (auto) 5.1 Neutrophils % 75.4 Lymphocytes % 13.0 D Monocytes % 4.8 Eosinophils % 6.7 H D Basophils % 0.1 D Haptoglobin 142 Sodium 134 L Potassium 4.0 Chloride 99 Carbon Dioxide 27 Anion Gap 8 BUN 10 Creatinine 0.8 Creat Clearance w eGFR > 60 Random Glucose 98 Calcium 7.7 L Phosphorus 2.3 L Magnesium 1.9 Total Bilirubin 1.0 Direct Bilirubin 0.3 D AST 94 H D ALT 103 H D Alkaline Phosphatase 151 H D Total Protein 5.6 L Albumin 3.1 L Lyme Screen IgG & IgM Lyme IgM Quantitation CMV IgG Ab CMV IgM Ab Active Medications Generic Name Dose Route Start Last Admin Trade Name Freq PRN Reason Stop Dose Admin Ceftriaxone Sodium 1 gm/ 50 mls @ 100 mls/hr 01/06/18 10:00 01/08/18 09:45 Dextrose IVPB 100 mls/hr DAILY OMKAR Administration Protocol Doxycycline Hyclate 100 mg/ 100 mls @ 50 mls/hr 01/06/18 22:00 01/08/18 21:34 Dextrose IVPB 50 mls/hr BID OMKAR Administration Ibuprofen 400 mg 01/06/18 13:56 01/09/18 06:46 Motrin - PO 400 mg Q6H PRN Administration FEVER Microbiology 01/05/18 21:30 Blood - Peripheral Venous Blood Culture - Preliminary NO GROWTH OBTAINED AFTER 72 HOURS, INCUBATION TO CONTINUE FOR 2 DAYS. 01/05/18 21:30 Blood - Peripheral Venous Blood Culture - Preliminary NO GROWTH OBTAINED AFTER 72 HOURS, INCUBATION TO CONTINUE FOR 2 DAYS. 01/07/18 14:00 Blood - Peripheral Venous Blood Culture - Preliminary NO GROWTH OBTAINED AFTER 24 HOURS, INCUBATION TO CONTINUE FOR 4 DAYS. 01/07/18 14:30 Blood - Peripheral Venous Blood Culture - Preliminary NO GROWTH OBTAINED AFTER 24 HOURS, INCUBATION TO CONTINUE FOR 4 DAYS. 01/06/18 00:14 Blood - Peripheral Venous Blood Parasites Smear - Final, 01/05/18 22:51 Urine - Urine Clean Catch Urine Culture - Final NO GROWTH OBTAINED 01/05/18 21:20 Nasopharyngeal Swab Influenza Types A,B Antigen - Final, neg 01/05/18 21:20 Nasopharyngeal Swab - Final imaging liver ultrasound: Diffuse hepatic steatosis, no hepatic abscess, chronic cholecytitis chest xray: no infilitrate no effusion noted ASSESSMENT/PLAN: 1) heme/onc fever of unknown origin-->tick borne vs viral - tmax 99.0, no leukocytosis noted, blood cultures negative to date - blood smear negative for parasites - lymes and cmv negative awaiting serologies - continue ceftriaxone (day #4)and doxycycline (day #4) - ID physician, Dr Haddad consulted and following 2) GI Transaminitis - hepatitis B-negative, awaiting complete hepatic serologies benign abdominal exam FEN regular diet Electrolytes: replete as indicated Nutrition: regular diet DVT prophylaxis: SCDs, oob, ambulation Dispo: continues to require inpatient care. Full Code. Visit type - Emergency Visit Emergency Visit: Yes ED Registration Date: 01/06/18 Care time: The patient presented to the Emergency Department on the above date and was hospitalized for further evaluation of their emergent condition. - New Patient This patient is new to me today: No - Critical Care Critical Care patient: No - Discharge Referral Referred to [facility] Med P.C.: No
[2018-01-09 08:44] LABS: ALBUMIN 2.7 g/dl (3.5-5.0); ALK PHOS 188 U/L (32-92); ANION GAP 3 (8-16); BLOOD UREA NITROGEN 8 mg/dl (7-18); CALCIUM 7.4 mg/dl (8.4-10.2); CHLORIDE 106 mmol/L (98-107); CO2 23 mmol/L (22-28); CREATININE 0.8 mg/dl (0.6-1.3); GLUCOSE,RANDOM 99 mg/dl (74-106); MAGNESIUM 1.8 mg/dL (1.8-2.4); PHOSPHOROUS 2.6 mg/dl (2.5-4.6); POTASSIUM 3.6 mmol/L (3.5-5.1); SGOT/AST 32 U/L (10-42); SGPT/ALT 94 U/L (10-40); SODIUM 132 mmol/L (136-145); TOT PROT 5.2 g/dl (6.4-8.3)
[2018-01-09] MEDS ORDERED: METOCLOPRAMIDE HCL INJECTION 10 MG/2 ML VIAL IVPUSH ONE (10:15)
[2018-01-09] MEDS ORDERED: MAGNESIUM SULFATE IN WATER 2 GM/50 ML IVPB IVPB ONE (10:30)
[2018-01-09] MEDS: CEFTRIAXONE 1 GM in DEXTROSE 5%-WATER - 50 ML IVPB SCH (10:32)
--- NOTE | 2018-01-09 10:32 | PN ---
Progress Note, Physician History of Present Illness: Remains afebrile x 24h C/O mild frontal headache WBC improved Tick serology pending LFTs improving HIV test negative - Current Medication List Current Medications: Active Medications Ceftriaxone Sodium 1 gm/ (Dextrose) 50 mls @ 100 mls/hr IVPB DAILY OMKAR; Protocol Last Admin: 01/08/18 09:45 Dose: 100 mls/hr Doxycycline Hyclate 100 mg/ (Dextrose) 100 mls @ 50 mls/hr IVPB BID OMKAR Last Admin: 01/08/18 21:34 Dose: 50 mls/hr Magnesium Sulfate (Magnesium Sulf 2 G/50 Ml Bag) 2 gm in 50 mls @ 50 mls/hr IVPB ONCE ONE Stop: 01/09/18 11:29 Ibuprofen (Motrin -) 400 mg PO Q6H PRN PRN Reason: FEVER Last Admin: 01/09/18 06:46 Dose: 400 mg - Objective Vital Signs: Vital Signs Temperature 98.3 F 01/09/18 10:00 Pulse Rate 68 01/09/18 10:00 Respiratory Rate 18 01/09/18 10:00 Blood Pressure 109/71 01/09/18 10:00 O2 Sat by Pulse Oximetry (%) 96 01/09/18 10:00 Constitutional: Yes: No Distress Eyes: Yes: Conjunctiva Clear Cardiovascular: Yes: Regular Rate and Rhythm, S1, S2 Respiratory: Yes: CTA Bilaterally Gastrointestinal: Yes: Normal Bowel Sounds, Soft Edema: No Labs: CBC, BMP 01/09/18 08:15 01/09/18 08:15 Assessment/Plan Fever,headache, leukopenia/ thrombocytopenia, elevated LFTs Tick-related vs. viral illness Await serologies Continue empiric ceftriaxone/ doxycycline
[2018-01-09] MEDS: DOXYCYCLINE INJECTION 100 MG in DEXTROSE 5%-WATER - 100 ML IVPB SCH ×2 (11:12→22:01)
[2018-01-09 16:31] LABS: E. chaff IgG Negative (Neg:<1:64)
[2018-01-09] MEDS ORDERED: IBUPROFEN 400 MG TABLET (FP) PO ONE (16:55)
[2018-01-09] MEDS ORDERED: PT OWN MED DRAWER 7, Y5N ONE (21:11)
[2018-01-10 00:08] LABS: BABESIA MICROTI ANTIBODY IGG <1:10 (Neg:<1:10); BABESIA MICROTI ANTIBODY IGM <1:10 (Neg:<1:10)
[2018-01-10] MEDS: IBUPROFEN 400 MG TABLET (FP) PO PRN (05:36)
[2018-01-10 06:46] VITALS: BP 113/75; PULSE 70; TEMP 98.5
[2018-01-10] MEDS ORDERED: ACETAMINOPHEN/CAFFEINE/BUTALBITAL 1 TAB PO ONE (09:00)
[2018-01-10] MEDS: CEFTRIAXONE 1 GM in DEXTROSE 5%-WATER - 50 ML IVPB SCH (09:56)
[2018-01-10] MEDS: DOXYCYCLINE INJECTION 100 MG in DEXTROSE 5%-WATER - 100 ML IVPB SCH (10:45)
[2018-01-10 10:55] LABS: BASO % 0.2 % (0-2.0); EOS % 8.5 % (0-4.5); HEMATOCRIT 40.2 % (35.4-49); HEMOGLOBIN 13.7 GM/dl (11.7-16.9); LYMPH % 19.7 % (8-40); MCH 29.5 pg (25.7-33.7); MEAN CELL VOLUME 86.9 fl (80-96); MEAN PLT VOLUME 7.5 fl (7.5-11.1); MONO % 7.3 % (3.8-10.2); NEUT % 64.3 % (42.8-82.8); PLATELET COUNT 325 K/MM3 (134-434); RBC 4.63 M/mm3 (4.00-5.60); RDW 12.5 % (11.9-15.9); WHITE BLOOD COUNT 6.7 K/mm3 (4.0-10.8)
--- NOTE | 2018-01-10 10:56 | PN ---
Progress Note, Physician History of Present Illness: Remains afebrile C/O mild frontal headache WBC improved Tick serology negative LFTs improving HIV test negative - Current Medication List Current Medications: Active Medications Ceftriaxone Sodium 1 gm/ (Dextrose) 50 mls @ 100 mls/hr IVPB DAILY [facility]; Protocol Last Admin: 01/10/18 09:56 Dose: 100 mls/hr Doxycycline Hyclate 100 mg/ (Dextrose) 100 mls @ 50 mls/hr IVPB BID [facility] Last Admin: 01/10/18 10:45 Dose: 50 mls/hr Ibuprofen (Motrin -) 400 mg PO Q6H PRN PRN Reason: FEVER Last Admin: 01/10/18 05:36 Dose: 400 mg - Objective Vital Signs: Vital Signs Temperature 98.5 F 01/10/18 04:00 Pulse Rate 70 01/10/18 04:00 Respiratory Rate 18 01/10/18 04:00 Blood Pressure 113/75 01/10/18 04:00 O2 Sat by Pulse Oximetry (%) 98 01/09/18 22:55 Constitutional: Yes: No Distress Eyes: Yes: Conjunctiva Clear Cardiovascular: Yes: Regular Rate and Rhythm, S1, S2 Respiratory: Yes: CTA Bilaterally Gastrointestinal: Yes: Normal Bowel Sounds, Soft. No: Tenderness Edema: No Assessment/Plan Fever,headache, leukopenia/ thrombocytopenia, elevated LFTs Tick-related vs. viral illness Continue empiric doxycycline D/C ceftriaxone CT head in light of persistant headaches
[2018-01-10 11:16] LABS: ALBUMIN 2.9 g/dl (3.5-5.0); ALK PHOS 174 U/L (32-92); ANION GAP 5 (8-16); BILIRUBIN,TOTAL 0.4 mg/dl (0.2-1.0); BLOOD UREA NITROGEN 10 mg/dl (7-18); CALCIUM 8.3 mg/dl (8.4-10.2); CHLORIDE 105 mmol/L (98-107); CO2 27 mmol/L (22-28); CREATININE 0.9 mg/dl (0.6-1.3); GLUCOSE,RANDOM 96 mg/dl (74-106); POTASSIUM 4.3 mmol/L (3.5-5.1); SGOT/AST 31 U/L (10-42); SGPT/ALT 80 U/L (10-40); SODIUM 137 mmol/L (136-145); TOT PROT 5.7 g/dl (6.4-8.3)
--- NOTE | 2018-01-10 12:56 | DS ---
Physical Exam: SUBJECTIVE: Patient seen and examined, patient is ambulatory throughout nursing station,denies any tactile fever, report resolution of headache after fiorcet. OBJECTIVE:The patient is a 42 year old male with no past medical history who presents to the emergency department for evaluation of body aches, fever and chills. The patient reports of having frontal HECTOR,eye pain,body aches especially to neck and lower back,joint pain with nausea,drenched in sweat when he drives during the day since Monday.The patient also reports associated symptoms of decreased appetite, subjective fever, chills, diaphoresis,and nausea without vomiting.Denies visual changes,double vision,sore throat,watery eyes,redness, rhinorrhea,rash, abdominal pain,diarrhea, cp, sob, palpitations,dizziness, weakness, urinary symptoms or weight loss. Denies any sick contact or recent travel history. 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 Pt reports of taking Advil for pain with no relief. ER course was notable for: (1)T 101.7, wbc 2.4,PLT 131,Na129,K 3, lactic acid normal (2) Abnormal LFT's (3)CxR: No acute pathology Vital Signs Period Temp Pulse Resp BP Sys/Vora Pulse Ox Last 24 Hr 98.3 F-99.1 F 66-77 18-19 106-113/63-75 98-99 PHYSICAL EXAM GENERAL: The patient is awake, alert, and fully oriented, in no acute distress. HEAD: Normal with no signs of trauma. EYES: PERRL, extraocular movements intact, sclera anicteric, conjunctiva clear. ENT: Ears normal, nares patent, oropharynx clear without exudates, moist mucous membranes. NECK: Trachea midline, full range of motion, supple. LUNGS: Breath sounds equal, clear to auscultation bilaterally, no wheezes, no crackles, no accessory muscle use. HEART: Regular rate and rhythm, S1, S2 without murmur, rub or gallop. ABDOMEN: Soft, nontender, nondistended, normoactive bowel sounds, no guarding, no rebound, no hepatosplenomegaly, no masses. EXTREMITIES: 2+ pulses, warm, well-perfused, no edema. NEUROLOGICAL: Cranial nerves II through XII grossly intact. Normal speech, steady gait observed. PSYCH: Normal mood, normal affect. SKIN: Warm, dry, normal turgor, no rashes or lesions noted. LABS Laboratory Results - last 24 hr 01/06/18 01/10/18 01/10/18 07:47 10:43 10:43 WBC 6.7 RBC 4.63 Hgb 13.7 Hct 40.2 MCV 86.9 MCH 29.5 MCHC 34.0 RDW 12.5 Plt Count 325 D MPV 7.5 Absolute Neuts (auto) 4.3 Neutrophils % 64.3 Lymphocytes % 19.7 D Monocytes % 7.3 Eosinophils % 8.5 H Basophils % 0.2 Sodium 137 Potassium 4.3 Chloride 105 Carbon Dioxide 27 Anion Gap 5 L BUN 10 Creatinine 0.9 Creat Clearance w eGFR > 60 Random Glucose 96 Calcium 8.3 L Total Bilirubin 0.4 AST 31 ALT 80 H Alkaline Phosphatase 174 H D Total Protein 5.7 L Albumin 2.9 L A. phagocytophilum DNA Negative Babesia microti IgG Ab <1:10 Babesia microti IgM Ab <1:10 Ehrlichia IgG Antibody Negative E. chaffeensis IgG Ab Negative E. chaffeensis IgM Ab Negative Microbiology 01/05/18 21:30 Blood - Peripheral Venous Blood Culture - Preliminary NO GROWTH OBTAINED AFTER 96 HOURS, INCUBATION TO CONTINUE FOR 1 DAYS. 01/05/18 21:30 Blood - Peripheral Venous Blood Culture - Preliminary NO GROWTH OBTAINED AFTER 96 HOURS, INCUBATION TO CONTINUE FOR 1 DAYS. 01/07/18 14:00 Blood - Peripheral Venous Blood Culture - Preliminary NO GROWTH OBTAINED AFTER 48 HOURS, INCUBATION TO CONTINUE FOR 3 DAYS. 01/07/18 14:30 Blood - Peripheral Venous Blood Culture - Preliminary NO GROWTH OBTAINED AFTER 48 HOURS, INCUBATION TO CONTINUE FOR 3 DAYS. 01/06/18 00:14 Blood - Peripheral Venous Blood Parasites Smear - Final, negative 01/05/18 22:51 Urine - Urine Clean Catch Urine Culture - Final,negative NO GROWTH OBTAINED 01/05/18 21:20 Nasopharyngeal Swab Influenza Types A,B Antigen - Final, negative 01/05/18 21:20 Nasopharyngeal Swab - Final,negative imaging liver ultrasound: Diffuse hepatic steatosis, no hepatic abscess, chronic cholecytitis chest xray: no infilitrate no effusion noted head ct: no acute pathology noted HOSPITAL COURSE: 1) fever of unknown origin-->tick borne vs viral - afebrile, no leukocytosis noted, blood cultures negative to date - blood smear negative for parasites - lymes and cmv negative awaiting serologies - ceftriaxone and doxycycline, 01/06-01/10/18 - ID physician, Dr Haddad consulted and followed 2) Transaminitis - hepatitis B-negative, awaiting complete hepatic serologies benign abdominal exam PLAN - discharge home with doxycline for 10 days - return precautions reviewed, ie chest pain, shortness of breath, advised to return to emergency department Date of Admission:01/06/18 Date of Discharge: 01/10/18 Minutes to complete discharge: 45 Discharge Summary Reason For Visit: FEVER/LEUKOPENIA/ABN LIVER FUNCTION TEST Current Active Problems FUO (fever of unknown origin) (Acute) Fever (Acute) Hypokalemia (Acute) Hyponatremia (Acute) LFTs abnormal (Acute) Leukopenia (Acute) Unexplained night sweats (Acute) Condition: Guarded - Instructions Diet, Activity, Other Instructions: continue doxycycline twice a day as prescribed, please take antibiotic as prescribed Resume regular diet Please follow-up with your primary care physician within 2 weeks If any new or persistent symptoms develop please return to emergency department Referrals: Vu Haddad MD [Staff Physician] - Disposition: HOME - Home Medications Comprehensive Discharge Medication List: Ambulatory Orders NK [No Known Home Medication] 01/05/18 This patient is new to me today: No Emergency Visit: Yes ED Registration Date: 01/06/18 Care time: The patient presented to the Emergency Department on the above date and was hospitalized for further evaluation of their emergent condition. Critical Care patient: No - Discharge Referral Referred to [facility] Med [facility] No
== END 2018-01-10 15:13 | disposition home or self-care (01) | DRG 661 ==
LOC: FER 19:34 → FM/S 01-06 00:35 → UNDOADMIN 01-06 01:18
PROVIDERS: ADMIT Internal Medicine; ATTEND Nurse Practitioner Family
DX: D69.6 Thrombocytopenia, unspecified (principal); R50.9 Fever, unspecified; R74.0 Nonspecific elevation of levels of transaminase and lactic acid dehydrogenase [LDH]; D72.819 Decreased white blood cell count, unspecified; E87.6 Hypokalemia; E87.1 Hypo-osmolality and hyponatremia; R51 Headache; R94.5 Abnormal results of liver function studies; K76.0 Fatty (change of) liver, not elsewhere classified; K81.1 Chronic cholecystitis
CPT/HCPCS: 36415; 70450-TC; 71046-TC-FY; 76705-TC; 80048; 80053; 80076; 81003; 81015; 82930; 83010; 83605; 83615; 83735; 84100; 85025; 85027; 85651; 86308; 86618; 86644; 86645; 86666; 86704; 86705; 86706; 86708; 86753; 86803; 87040; 87086; 87207; 87340; 87389; 87804; 93005; 99283-25; J7030